=== PATIENT | female | born 1930 | race Caucasian/White ===

== ENCOUNTER 2020-02-24 20:30 | Emergency (ER) | payer MEDICARE ==
[~2020-02-24] VITALS: Ht 152.4 cm; Wt 45.4 kg
--- NOTE | 2020-02-24 21:56 | RAD ---
EXAM: CT HEAD WITHOUT IV CONTRAST CLINICAL HISTORY: Reason: laceration, pain s/p fall / Spl. Instructions: / History: COMPARISON: None. TECHNIQUE: Routine CT of the head without contrast. Soft tissues and bone windows were reviewed. PQRS compliance statement - One or more of the following individualized dose reduction techniques were utilized for this study: 1. Automated exposure control 2. Adjustment of the mA and/or kV according to patient size 3. Use of iterative reconstruction technique FINDINGS: There is no evidence of hemorrhage, mass or extra-axial fluid collection. Truong-white differentiation is maintained with no evidence of edema. Subcortical, periventricular as well as deep white matter hypoattenuation likely changes of chronic small vessel disease. There is no mass effect or shift of the intracranial structures. There is prominence of the ventricles and sulci bilaterally consistent with generalized cerebral atrophy. The cerebellum and brainstem are unremarkable. The calvarium demonstrates no evidence of fracture or focal lesion. There is normal aeration of the visualized paranasal sinuses and mastoid air cells. The visualized portions of the orbits are normal. Marked subcutaneous soft tissue swelling overlying the left calvarium, consistent with provided history of laceration. Atherosclerotic calcifications of the intracranial internal carotid and vertebral arteries is seen. IMPRESSION: No evidence for acute intracranial process. There is prominence of the ventricles and sulci bilaterally consistent with generalized cerebral atrophy. White matter changes likely chronic small vessel disease. EXAM: CT CERVICAL SPINE WITHOUT IV CONTRAST CLINICAL HISTORY: laceration, pain s/p fall COMPARISON: None available. TECHNIQUE: Helical CT of the cervical spine was performed. Axial, coronal and sagittal reformatted images were also performed. PQRS compliance statement - One or more of the following individualized dose reduction techniques were utilized for this study: 1. Automated exposure control 2. Adjustment of the mA and/or kV according to patient size 3. Use of iterative reconstruction technique FINDINGS: Diffusely decreased bone mineral density. Vertebral body heights are preserved. There is approximately 2 mm anterolisthesis of C4 on C5 and 3 mm retrolisthesis of C5 on C6 and C6 on C7. Endplate osteophytes are seen both anteriorly and posteriorly. Straightening of the normal cervical lordosis with focal reversal apexed C5. Mild C4-5, severe C5-6, C6-7 disc height loss. Atlantodental degenerative changes are seen. IMPRESSION: No evidence for acute fracture within the constraints of osteopenia. Trace anterolisthesis of C4 on C5 and retrolisthesis of C5 on C6 and C6 on C7, possibly degenerative. Electronically signed by: Randolph Chin MD (02/24/2020 9:53 PM) PRAFUL
[2020-02-24] MEDS ORDERED: NEOMY/BACITR/POLYMYXIN OINT PACKET. TP ONE ×2 (22:00→23:00)
[2020-02-24] MEDS ORDERED: LIDOCAINE 2%/EPI 1:100,000 20 ML VIAL. INJ ONE (22:00)
[2020-02-24] MEDS ORDERED: DIPH,PERTUSS(ACELL),TET VAC/PF 0.5 ML SYRINGE. VAX IM ONE (22:00)
--- NOTE | 2020-02-24 22:06 | RAD ---
EXAM: AP, lateral and radial head views of the left elbow DATE: 02/24/2020 9:20 PM INDICATION: Reason: pain s/p fall / Spl. Instructions: / History: COMPARISON: No Prior FINDINGS: No elbow joint effusion. No acute fracture or dislocation. No significant soft tissue swelling. IMPRESSION: No acute fracture or dislocation. Electronically signed by: Randolph Chin MD (02/24/2020 10:03 PM) PRAFUL
--- NOTE | 2020-02-24 22:14 | PHYS DOC ---
Past Medical History Past Medical History: Hypertension Past Surgical History: No Surgical History Smoking Status: Never Smoker Alcohol Use: None Drug Use: None General Adult EDM: Chief Complaint: MECHANICAL FALL HPI: HPI: 89-year-old female presents with her daughter with report of mechanical trip and fall down a few stairs striking her left side of her head on corner of [place] cabinet. Patient reports occurred approximately 1 hour prior to arrival. Patient with laceration to scalp that has been bleeding. Patient also complains of skin tear/abrasion to left elbow. Denies loss of consciousness. Denies neck pain. Denies use of blood thinners. Review of Systems: Review of Systems: Constitutional: Denies fever or chills Eyes: Denies redness or eye pain HENT: Denies nasal congestion or sore throat Respiratory: Denies cough or shortness of breath Cardiovascular: Denies chest pain or palpitations GI: Denies abdominal pain, nausea, or vomiting : Denies dysuria or hematuria Musculoskeletal: Denies back pain; reports left elbow pain Integument: Denies rash; reports left scalp laceration and skin tear to left elbow Neurologic: Reports headache; denies focal weakness or sensory changes Complete systems were reviewed and found to be within normal limits, except as documented in this note. Current Medications: Current Medications Medications (Trade) Dose Ordered Sig/Rajat Start Time Stop Time Status Last Admin Dose Admin Diphtheria/ Tetanus/Acell Pertussis (ADACEL TDap SYRINGE) 0.5 ml ONCE ONCE 02/24/20 22:00 02/24/20 22:01 DC 02/24/20 21:56 0.5 ML Lidocaine/ Epinephrine (LIDOCAINE 2%-EPI 1:100,000 multi-dose) 20 ml 1X ONCE 02/24/20 22:00 02/24/20 22:01 DC 02/24/20 21:55 20 ML Neomycin/ Polymyxin/ Bacitracin (Triple Antibiotic Ointment) 1 pkt 1X ONCE 02/24/20 22:00 02/24/20 22:01 DC 02/24/20 21:55 1 PKT Allergies: Allergies: Allergies Coded Allergies Type Severity Reaction Last Updated Verified No Known Drug Allergies 02/24/20 No Physical Exam: PE: Constitutional: Well developed, well nourished, no acute distress, non-toxic appearance, hard of hearing HENT: Normocephalic, left parietal scalp laceration measuring approximately 4 cm with significant bleeding Eyes: PERRL, EOMI, conjunctiva normal, no discharge Neck: Normal range of motion, no midline tenderness, supple Lungs & Thorax: No respiratory distress, equal chest rise and fall Abdomen: Soft, no tenderness; pelvis stable and nontender Skin: Warm, dry, no erythema, 4 cm laceration to left parietal scalp Back: No midline tenderness, no CVA tenderness Extremities: Left olecranon tenderness on palpation, no deformity, ROM intact, no edema Neurologic: Alert and oriented X 3, normal motor function, normal sensory function, no focal deficits noted Psychologic: Affect normal, judgment normal Current Patient Data: Vital Signs: Vital Signs Date Time Temp Pulse Resp B/P (MAP) Pulse Ox O2 Delivery O2 Flow Rate FiO2 02/24/20 21:00 98.5 72 18 186/86 (119) 99 Room Air 98.5 EKG: EKG: [] Radiology/Procedures: Radiology/Procedures: PROCEDURE: CT HEAD AND CERVICAL SPINE WO EXAM: CT HEAD WITHOUT IV CONTRAST CLINICAL HISTORY: Reason: laceration, pain s/p fall / Spl. Instructions: / History: COMPARISON: None. TECHNIQUE: Routine CT of the head without contrast. Soft tissues and bone windows were reviewed. PQRS compliance statement - One or more of the following individualized dose reduction techniques were utilized for this study: 1. Automated exposure control 2. Adjustment of the mA and/or kV according to patient size 3. Use of iterative reconstruction technique FINDINGS: There is no evidence of hemorrhage, mass or extra-axial fluid collection. Truong-white differentiation is maintained with no evidence of edema. Subcortical, periventricular as well as deep white matter hypoattenuation likely changes of chronic small vessel disease. There is no mass effect or shift of the intracranial structures. There is prominence of the ventricles and sulci bilaterally consistent with generalized cerebral atrophy. The cerebellum and brainstem are unremarkable. The calvarium demonstrates no evidence of fracture or focal lesion. There is normal aeration of the visualized paranasal sinuses and mastoid air cells. The visualized portions of the orbits are normal. Marked subcutaneous soft tissue swelling overlying the left calvarium, consistent with provided history of laceration. Atherosclerotic calcifications of the intracranial internal carotid and vertebral arteries is seen. IMPRESSION: No evidence for acute intracranial process. There is prominence of the ventricles and sulci bilaterally consistent with generalized cerebral atrophy. White matter changes likely chronic small vessel disease. EXAM: CT CERVICAL SPINE WITHOUT IV CONTRAST CLINICAL HISTORY: laceration, pain s/p fall COMPARISON: None available. TECHNIQUE: Helical CT of the cervical spine was performed. Axial, coronal and sagittal reformatted images were also performed. PQRS compliance statement - One or more of the following individualized dose reduction techniques were utilized for this study: 1. Automated exposure control 2. Adjustment of the mA and/or kV according to patient size 3. Use of iterative reconstruction technique FINDINGS: Diffusely decreased bone mineral density. Vertebral body heights are preserved. There is approximately 2 mm anterolisthesis of C4 on C5 and 3 mm retrolisthesis of C5 on C6 and C6 on C7. Endplate osteophytes are seen both anteriorly and posteriorly. Straightening of the normal cervical lordosis with focal reversal apexed C5. Mild C4-5, severe C5-6, C6-7 disc height loss. Atlantodental degenerative changes are seen. IMPRESSION: No evidence for acute fracture within the constraints of osteopenia. Trace anterolisthesis of C4 on C5 and retrolisthesis of C5 on C6 and C6 on C7, possibly degenerative. Electronically signed by: Randolph Chin MD (02/24/2020 9:53 PM) [facility] PROCEDURE: ELBOW LEFT 3V EXAM: AP, lateral and radial head views of the left elbow DATE: 02/24/2020 9:20 PM INDICATION: Reason: pain s/p fall / Spl. Instructions: / History: COMPARISON: No Prior FINDINGS: No elbow joint effusion. No acute fracture or dislocation. No significant soft tissue swelling. IMPRESSION: No acute fracture or dislocation. Electronically signed by: Randolph Chin MD (02/24/2020 10:03 PM) [facility] Course & Med Decision Making: Course & Med Decision Making Pertinent Imaging studies reviewed. (See chart for details) Elderly patient presents with report of mechanical trip and fall with scalp laceration and elbow abrasion/skin tear. CT head/cervical spine without acute process. Left elbow x-ray also without fracture or dislocation. Wounds cleaned. Scalp laceration repaired with jeffrey and bleeding controlled. Skin tear cleaned and dressed. Patient stable for discharge with outpatient follow-up with PCP. Discussed findings and plan with patient and family, who acknowledge understanding and agreement. [place] Disclaimer: [place] Disclaimer: This electronic medical record was generated, in whole or in part, using a voice recognition dictation system. Laceration/Wound Repair Laceration/Wound Repair : Wound Location: head Wound's Depth, Shape: linear Wound Length (cm): 4 Wound Explored: clean Anesthesia: Lidocaine w/ Epi (2%) Volume Anesthetic (ccs): 7 Wound Debrided: moderate Sterile Dressing Applied?: Yes Progress Verbal consent obtained. Time out performed. Hand hygiene utilized. Wound cleaned with ChloraPrep. Anesthesia obtained via a 25-gauge hypodermic needle with (7) mL's of lidocaine 2% with epinephrine. Wound well approximated with jeffrey x 8. Direct pressure then held for 5 min with hemostasis. Patient tolerated procedure well and without difficulty. Empiric antibiotic ointment applied prior to sterile dressing. Departure Departure Impression: Primary Impression: Scalp laceration Qualified Codes: S01.01XA - Laceration without foreign body of scalp, initial encounter Additional Impressions: Elbow contusion Qualified Codes: S50.02XA - Contusion of left elbow, initial encounter Skin tear of elbow without complication Qualified Codes: S51.012A - Laceration without foreign body of left elbow, initial encounter Disposition: 01 HOME, SELF-CARE Condition: STABLE Referrals: UNKNOWN PCP NAME (PCP) Patient Instructions: Elastic Bandage and RICE, Elbow Contusion, [id number], Laceration Care, Adult, [id number], Skin Tear Care, [id number] Additional Instructions: Do not soak your wound. You may shower. Clean wound daily with soap and water. Use over the counter antibiotic ointment twice daily. Jeffrey need to be removed in 7-10 days. Present to your family doctor or local urgent care for removal. You may also present to the ED but it will be an additional visit/charge. Justicifation of Admission Dx: Justifications for Admission: Justification of Admission Dx: N/A JULIETA JIMENEZ DO Feb 24, 2020 22:14
[2020-02-24 23:04] VITALS: BP 146/69
== END 2020-02-24 23:10 | disposition home or self-care (01) ==
LOC: ER 20:30
DX: S01.01XA Laceration without foreign body of scalp, initial encounter (principal); I10 Essential (primary) hypertension; W10.8XXA Fall (on) (from) other stairs and steps, initial encounter; Y93.89 Activity, other specified; Y92.89 Other specified places as the place of occurrence of the external cause; Y99.8 Other external cause status
CPT/HCPCS: 12002; 70450; 72125; 73080; 90471; 90715; 99285; J3490

== ENCOUNTER 2020-03-03 10:11 | Emergency (ER) | payer MEDICARE ==
[~2020-03-03] VITALS: Ht 162.6 cm; Wt 63.6 kg
[2020-03-03 11:11] VITALS: BP 170/73
--- NOTE | 2020-03-03 11:37 | PHYS DOC ---
Past Medical History Past Medical History: No Pertinent History Past Surgical History: No Surgical History Smoking Status: Never Smoker Alcohol Use: None Drug Use: None General Adult EDM: Chief Complaint: SUTURE/STAPLE REMOVAL HPI: HPI: 89-year-old female presents the ED with son, requesting staple removal. Patient states she tripped and fell on 02/23, was seen here with "lots of head bleeding," and was stapled. Patient with no active complaints to the wound. Still applying triple antibiotic ointment. Review of Systems: Review of Systems: Constitutional: Denies fever or chills. [] Eyes: Denies change in visual acuity. [] HENT: Denies nasal congestion or sore throat. [] Respiratory: Denies cough or shortness of breath. [] Cardiovascular: Denies chest pain or edema. [] GI: Denies nausea, vomiting, : Denies dysuria. [] Musculoskeletal: Denies back pain or joint pain. [] Integument: Denies rash. [] Neurologic: Denies headache, focal weakness or sensory changes. [] Psychiatric: Denies depression or anxiety. [] Allergies: Allergies: Allergies Coded Allergies Type Severity Reaction Last Updated Verified No Known Drug Allergies 02/24/20 No Physical Exam: PE: Constitutional: Well developed, well nourished, no acute distress, non-toxic appearance. [] HENT: Normocephalic, atraumatic, bilateral external ears normal, 8 altagracia left parietal scalp w/scabs, no erythema/rash or wound dehisence, nose normal. [] Eyes: EOMI, conjunctiva normal, no discharge. [] Neck: Normal range of motion, no tenderness, supple, no stridor. [] Skin: Warm, dry, no erythema, no rash. [] Extremities: No tenderness, no cyanosis, no clubbing, ROM intact, no edema. [] Neurologic: Alert and oriented X 3, normal motor function, normal sensory function, no focal deficits noted. [] Psychologic: Affect normal, judgement normal, mood normal. [] Current Patient Data: Vital Signs: Vital Signs Date Time Temp Pulse Resp B/P (MAP) Pulse Ox O2 Delivery O2 Flow Rate FiO2 03/03/20 11:11 97.8 74 20 170/73 (105) 98 Room Air 97.8 EKG: EKG: [] Radiology/Procedures: Radiology/Procedures: 8 altagracia easily removed with no wound dehiscence or active bleeding, tolerated well Course & Med Decision Making: Course & Med Decision Making Pertinent Labs and Imaging studies reviewed. (See chart for details) Encounter for staple removal. Wound healing well. Discourage any further topical antibiotic ointment. Recommended lathering up antibacterial soap and gently cleansing the wound-wound care instructions were given. Encouraged urgent outpatient follow-up with PMD. Life-threatening processes were considered but are low suspicion at this time, given history and physical exam. Pt was educated on all prescription medications and adverse effects. All patient's questions were answered and pt was stable at time of discharge. I spoken with the patient and her caregivers. I explained the patient's condition, diagnoses and treatment plan based on the information available to me at this time. I have answered the patient and her caregiver's questions and addressed any concerns. The patient and her caregivers have a good understanding of patient's diagnosis, condition and treatment plan as can be expected at this point. Vital signs have been stable. Patient's condition is stable and appropriate for discharge from the emergency department. Patient will pursue further outpatient evaluation with primary care physician or other designated or consulting physician as outlined in the discharge instructions. The patient and/or caregivers are agreeable to this plan of care and follow-up instructions have been explained in detail. The patient and/or caregivers have received these instructions in written form and have expressed an understanding of the discharge instructions. The patient and/or caregivers are aware that any significant change of condition or worsening of symptoms should prompt immediate return to this or the closest emergency department or call to 911. [place] Disclaimer: [place] Disclaimer: This electronic medical record was generated, in whole or in part, using a voice recognition dictation system. Departure Departure Impression: Primary Impression: Removal of altagracia Disposition: HOME, SELF-CARE Condition: STABLE Referrals: UNKNOWN PCP NAME (PCP) Patient Instructions: Staple Removal, Care After Justicifation of Admission Dx: Justifications for Admission: Justification of Admission Dx: N/A STEPHANIE TUCKER DO Mar 03, 2020 11:37
== END 2020-03-03 11:52 | disposition home or self-care (01) ==
LOC: ER 10:11
DX: S01.01XD Laceration without foreign body of scalp, subsequent encounter (principal); W01.0XXD Fall on same level from slipping, tripping and stumbling without subsequent striking against object, subsequent encounter
CPT/HCPCS: 99281; 99282

== ENCOUNTER 2020-06-06 18:18 | Observation (INO) | payer MEDICARE ==
[~2020-06-06] VITALS: Ht 149.9 cm; Wt 38.1 kg
[2020-06-06] MEDS ORDERED: TETANUS AND DIPHTHERIA TOX/PF 0.5 ML DISP.SYRIN. VAX IM ONE (20:00)
[2020-06-06] MEDS ORDERED: LIDOCAINE 1% Multi-Dose 20 ML VIAL. INJ ONE (20:00)
[2020-06-06 20:01] LABS: BILIRUBIN,URINE NEGATIVE (NEG); CLARITY,URINE CLEAR; COLOR,URINE YELLOW; NITRITE,URINE NEGATIVE (NEG); PROTEIN,URINE NEGATIVE (NEG-TRACE)
[2020-06-06 20:12] LABS: RBC,URINE 0 /HPF (0-2)
[2020-06-06 20:13] LABS: BACTERIA,URINE 0 /HPF (0-FEW)
--- NOTE | 2020-06-06 21:08 | RAD ---
CT Head W/O Contrast: History: Reason: fall hit head / Spl. Instructions: / History: Comparison: February 24, 2020 Axial images were obtained without contrast. There is a tiny 2 mm subdural hematoma on the right breast seen on image #21. The dunne and white matter appears normal and symmetrical for the patients age. There is no mass effect or hydrocephalus. There is no gross bleed. There is no focal loss of dunne-white matter distinction to suggest acute ischemia, i.e. stroke. Impression: Tiny acute subdural hematoma on the right. No mass effect. End impression CT C-Spine without contrast: Clinical History: Reason: fall hit head / Spl. Instructions: / History: Technique: Axial helical images of the cervical spine were obtained without contrast, axial coronal and sagittal reconstruction was performed. Findings: There is no loss of vertebral body stature. There is no prevertebral soft tissue swelling. The vertebral bodies are well aligned. The C1-C2 relationship is normal. The visualized osseous structures appear normal. Evaluation of the central canal is limited without contrast. There is multiple posterior disc bulges resulting in flattening of the thecal sac. At C5-C6 and C6-C7 there is loss of intervertebral disc height and diffuse disc osteophytic ridges causing complete effacement of CSF around cord. There is mild flattening of the cord at these levels makes the patient susceptible to possible cord contusion. There is also marked narrowing of multiple neuroforamen. There is moderate narrowing of the neuroforamen at these levels. 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 No acute findings. Clinical correlation suggested. See CT head without contrast. End impression PQRS Compliance Statement: One or more of the following individualized dose reduction techniques were utilized for this examination: 1. Automated exposure control 2. Adjustment of the mA and/or kV according to patient size 3. Use of iterative reconstruction technique Electronically signed by: Todd Guzman III, MD (06/06/2020 9:04 PM) [facility]
--- NOTE | 2020-06-06 21:56 | PHYS DOC ---
Past Medical History Past Medical History: Dementia, Hypertension Additional Past Medical Histor: Falls. Past Surgical History: No Surgical History Smoking Status: Never Smoker Alcohol Use: None Drug Use: None General Adult EDM: Chief Complaint: MECHANICAL FALL HPI: HPI: Patient is a 89 year old female with a history of dementia, hypertension, who presents to the ED to be evaluated after falling sometime this afternoon. It is unknown what time patient fell but family member with the patient in the ED states she received a call from patient stating she had fallen. It is unknown if she had any loss of consciousness due to Dementia she is unable to state if she had any LOC. She is in the ED alert and oriented x4. Family reports she is on aspirin 81 mg daily. Patient has laceration to the right ear. Review of Systems: Review of Systems: Constitutional: Denies fever or chills. [] Eyes: Denies change in visual acuity. [] HENT: Denies nasal congestion or sore throat. [] Respiratory: Denies cough or shortness of breath. [] Cardiovascular: Denies chest pain or edema. [] GI: Denies abdominal pain, nausea, vomiting, bloody stools or diarrhea. [] : Denies dysuria. [] Musculoskeletal: Denies back pain or joint pain. [] Integument: Right ear laceration. Neurologic: Patient reports falling. Denies headache, focal weakness or sensory changes. [] Psychiatric: Denies depression or anxiety. [] Heart Score: Risk Factors: Risk Factors: DM, Current or recent (<one month) smoker, HTN, HLP, family history of CAD, obesity. Risk Scores: Score 0 - 3: 2.5% MACE over next 6 weeks - Discharge Home Score 4 - 6: 20.3% MACE over next 6 weeks - Admit for Clinical Observation Score 7 - 10: 72.7% MACE over next 6 weeks - Early Invasive Strategies Current Medications: Current Medications Medications (Trade) Dose Ordered Sig/[facility] Start Time Stop Time Status Last Admin Dose Admin Lidocaine HCl (Lidocaine 1% 20ml Vial) 20 ml 1X ONCE 06/06/20 20:00 06/06/20 20:01 DC 06/06/20 19:45 20 ML Tetanus/ Diphtheria Toxoids (Tenivac Syringe) 0.5 ml ONCE ONCE 06/06/20 20:00 06/06/20 20:01 DC Allergies: Allergies: Allergies Coded Allergies Type Severity Reaction Last Updated Verified No Known Drug Allergies 02/24/20 No Physical Exam: PE: Constitutional: Thin appearing patient, no acute distress, non-toxic appearance. [] HENT: Normocephalic, oropharynx moist, no oral exudates, nose normal. See skin Eyes: PERRLA, EOMI, conjunctiva normal, no discharge. [] Neck: Normal range of motion, no tenderness, supple, no stridor. [] Cardiovascular:Heart rate regular rhythm, no murmur [] Lungs & Thorax: Bilateral breath sounds clear to auscultation [] Abdomen: Bowel sounds normal, soft, no tenderness, no masses, no pulsatile masses. [] Skin: right helix with 2 lacerations, one laceration is on the posterior aspect approximately 3 cm long, the other laceration on top of the helix approximately 2 cm long. None of the lacerations are cutting through. Bleeding is well controlled. Back: No tenderness, no CVA tenderness. [] Extremities: No tenderness, no cyanosis, no clubbing, ROM intact, no edema. [] Neurologic: Alert and oriented X 3, normal motor function, normal sensory function, no focal deficits noted. Cranial nerves II through XII intact. Psychologic: Affect normal, judgement normal, mood normal. [] Current Patient Data: Labs: Laboratory Tests Test 06/06/20 19:50 Urine Collection Type Unknown Urine Color Yellow Urine Clarity Clear Urine pH 6.0 (<5.0-8.0) Urine Specific [place] 1.020 (1.000-1.030) Urine Protein Negative mg/dL (NEG-TRACE) Urine Glucose (UA) Negative mg/dL (NEG) Urine Ketones (Stick) Negative mg/dL (NEG) Urine Blood Negative (NEG) Urine Nitrite Negative (NEG) Urine Bilirubin Negative (NEG) Urine Urobilinogen Dipstick 1.0 mg/dL (0.2 mg/dL) Urine Leukocyte Esterase Trace (NEG) Urine RBC 0 /HPF (0-2) Urine WBC 1-4 /HPF (0-4) Urine Squamous Epithelial Cells Mod /LPF Urine Transitional Epithelial Cells Few /LPF Urine Bacteria 0 /HPF (0-FEW) Urine Mucus Marked /LPF Vital Signs: Vital Signs Date Time Temp Pulse Resp B/P (MAP) Pulse Ox O2 Delivery O2 Flow Rate FiO2 06/06/20 19:04 97.8 74 14 166/66 (99) 99 Room Air 97.8 EKG: EKG: [] Radiology/Procedures: Radiology/Procedures: []PROCEDURE: CT HEAD AND CERVICAL SPINE WO CT Head W/O Contrast: History: Reason: fall hit head / Spl. Instructions: / History: Comparison: February 24, 2020 Axial images were obtained without contrast. There is a tiny 2 mm subdural hematoma on the right breast seen on image #21. The dunne and white matter appears normal and symmetrical for the patients age. There is no mass effect or hydrocephalus. There is no gross bleed. There is no focal loss of dunne-white matter distinction to suggest acute ischemia, i.e. stroke. Impression: Tiny acute subdural hematoma on the right. No mass effect. End impression CT C-Spine without contrast: Clinical History: Reason: fall hit head / Spl. Instructions: / History: Technique: Axial helical images of the cervical spine were obtained without contrast, axial coronal and sagittal reconstruction was performed. Findings: There is no loss of vertebral body stature. There is no prevertebral soft tissue swelling. The vertebral bodies are well aligned. The C1-C2 relationship is normal. The visualized osseous structures appear normal. Evaluation of the central canal is limited without contrast. There is multiple posterior disc bulges resulting in flattening of the thecal sac. At C5-C6 and C6-C7 there is loss of intervertebral disc height and diffuse disc osteophytic ridges causing complete effacement of CSF around cord. There is mild flattening of the cord at these levels makes the patient susceptible to possible cord contusion. There is also marked narrowing of multiple neuroforamen. There is moderate narrowing of the neuroforamen at these levels. 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 No acute findings. Clinical correlation suggested. See CT head without contrast. End impression PQRS Compliance Statement: One or more of the following individualized dose reduction techniques were utilized for this examination: 1. Automated exposure control 2. Adjustment of the mA and/or kV according to patient size 3. Use of iterative reconstruction technique Electronically signed by: Bakari Gorman III, MD (06/06/2020 9:04 PM) [facility] DICTATED and SIGNED BY: BAKARI GORMAN III, MD DATE: 06/06/20 [id number] Laceration/Wound Repair Wound Location: Right hallux Wound's Depth, Shape: Vertical Wound Length (cm): See skin documentation on physical exam Wound Explored: clean Irrigated w/ Saline (ccs): 10 Betadine Prep?: Yes Anesthesia: 1% of lidocaine Volume Anesthetic (ccs): Approximately 7 cc Wound Repaired With: Vicryl Suture Size/Type: 4.0/interrupted sutures Number of Sutures: Posterior helix was repaired with 6 interrupted sutures, the top of the helix was repaired with 4 interrupted sutures. Wound was left open to air Course & Med Decision Making: Course & Med Decision Making Pertinent Labs and Imaging studies reviewed. (See chart for details) This is a 89-year-old female patient presenting to the ED today to be evaluated after falling this afternoon. Patient has laceration to the right ear. She is not able to tell us if she had any loss of consciousness, has history of dementia. UA is negative CT of the head was noted for a tiny subdural hematoma on the right side. I spoke to Sonia [facility] [place] for Dr. Ramos who requested we admit patient ICU. Spoke with Dr. Parsons who accepted patient for admission Dragon Disclaimer: [place] Disclaimer: This electronic medical record was generated, in whole or in part, using a voice recognition dictation system. Departure Departure Impression: Primary Impression: Fall Qualified Codes: W19.XXXA - Unspecified fall, initial encounter Additional Impressions: Laceration of right ear Qualified Codes: S01.311A - Laceration without foreign body of right ear, initial encounter Subdural hematoma, acute Disposition: 09 ADMITTED INPT THIS HOSP Condition: STABLE Referrals: NO PCP (PCP) GERSON [employer]AS [employer] Jun 06, 2020 21:56
[2020-06-06] MEDS ORDERED: fentaNYL PF VIAL 100 MCG/2 ML VIAL IV PRN (22:15)
[2020-06-06 22:21] LABS: BASO % 1 % (0-3); EOS # 0.1 x10^3/uL (0.0-0.7); EOS % 1 % (0-3); HEMATOCRIT 43.7 % (36.0-47.0); HEMOGLOBIN 14.8 g/dL (12.0-15.5); LYMPH # 1.9 x10^3/uL (1.0-4.8); LYMPH % 34 % (24-48); MEAN CORPUSCULAR HEMOGLOBIN 32 pg (25-35); MEAN CORPUSCULAR HGB CONC 34 g/dL (31-37); MEAN CORPUSCULAR VOLUME 93 fL (79-100); MONO # 0.5 x10^3/uL (0.0-1.1); MONO % 9 % (0-9); NEUT % 55 % (31-73); PLATELET COUNT 231 x10^3/uL (140-400); RED BLOOD COUNT 4.68 x10^6/uL (3.50-5.40); RED CELL DISTRIBUTION WIDTH 13.8 % (11.5-14.5); WHITE BLOOD COUNT 5.6 x10^3/uL (4.0-11.0)
[2020-06-06 22:33] LABS: PROTHROMBIN TIME PATIENT 13.1 SEC (11.7-14.0)
[2020-06-06 22:34] LABS: CALCIUM 9.2 mg/dL (8.5-10.1); CREATININE 0.7 mg/dL (0.6-1.0); POTASSIUM 4.3 mmol/L (3.5-5.1)
[2020-06-06 22:40] LABS: ALBUMIN 3.7 g/dL (3.4-5.0); ALBUMIN/GLOBULIN RATIO 1.3 (1.0-1.7); MAGNESIUM 2.2 mg/dL (1.8-2.4); TOTAL BILIRUBIN 0.4 mg/dL (0.2-1.0); TOTAL PROTEIN 6.6 g/dL (6.4-8.2)
[2020-06-06] MEDS ORDERED: LABETALOL 20 MG/4 ML DISP.SYRIN. IVP ONE (23:00)
--- NOTE | 2020-06-06 23:15 | NUR ---
received report from budget report clerk. pt abhishek springh. says she has been healthy all her life. a and o x3. in room 111 in icu. laceration on right side of face effecting her ear, lcrn
[2020-06-06 23:46] LABS: BARBITURATES NEG (NEG); BENZODIAZEPINES NEG (NEG); CANNABINOIDS NEG (NEG); COCAINE NEG (NEG); METHADONE NEG (NEG); OPIATES NEG (NEG); PHENCYCLIDINE NEG (NEG)
[2020-06-06 23:58] LABS: AMPHETAMINE/METHAMPHETAMINE NEG (NEG)
[2020-06-07] VITALS (8 sets, daily range): BP systolic 88–158; BP diastolic 42–76
[2020-06-07] MEDS ORDERED: ASPI81TA59 PO (06:31)
[2020-06-07] MEDS ORDERED: AMLO10TA4 PO (07:06)
--- NOTE | 2020-06-07 08:46 | RAD ---
INDICATION: Reason: Subdural hematoma;DO CT AROUND 8-8:30AM PER DR RAYGOZA / Spl. Instructions: / History: . COMPARISON: June 06, 2020 TECHNIQUE: Axial CT images obtained through the head. One or more of the following individualized dose reduction techniques were utilized for this examination: 1. Automated exposure control; 2. Adjustment of the mA and/or kV according to patient size; 3. Use of iterative reconstruction technique. FINDINGS: No midline shift. Suprasellar cistern is not effaced. Diffuse prominence of ventricles and sulci which can be seen with age-related volume loss. Repeat demonstration of a tiny density within the right cerebral hemisphere just deep to the calvarium measuring up to about 2 mm in thickness. Multifocal low density throughout the white matter. Calcific atherosclerosis. IMPRESSION: * No major change in the density just deep to the calvarium in the right cerebral hemisphere. Again could be from a tiny amount of subdural blood although a portion of this appearance could also be secondary to vein coursing through the region. * Multifocal low density within the white matter which can be seen with chronic small vessel ischemic disease and is a common finding. Electronically signed by: Jp Salomon MD (06/07/2020 8:43 AM) [id number]
--- NOTE | 2020-06-07 09:51 | NUR ---
NOTIFIED DAUGHTER OF TRANSFER.
--- NOTE | 2020-06-07 10:01 | PDOC1 ---
History and Physical Date of Admission Date of Admission 06/07/2020 Identification/Chief Complaint Chief Complaint I fell Problems: (1) Fall (2) Subdural hematoma, acute (3) Laceration of right ear Source Source: Chart review, Patient History of Present Illness History of Present Illness Patient is an 89-year-old female with a past medical history of essential hypertension and dementia who is a very poor historian presented to the emergency department after falling in the afternoon the day prior to her admission. The patient tells me that she lives by herself does not know if she has family around initially but later on when redirecting the conversation she tells me that she does have family in the vicinity. She denied any lightheadedness no chest pain no palpitations prior to the event, the patient denied any sensation of impending doom and she does not remember the chain of events that led her to be on the floor. Patient suffered a laceration on her right ear as a consequence of her fall in she was also found to have a subdural hematoma on CT scan. The patient reported no discomfort at the time my evaluation. We were asked to admit the patient for neurosurgical evaluation by Dr. Shook. No neurological deficits are evident no slurred speech no strokelike symptoms were reported she is able to move all extremities and she is wanting to be released home soon if possible. Plan of care has been explained in detail and all of her concerns addressed to the best of my abilities. The patient family members reported that the patient takes aspirin 81 mg daily but no other anticoagulation. Patient denies headache no blurred vision no double vision no dysphagia odynophagia no shortness of breath no cough no sputum production no recent sick contacts were reported no nausea vomiting or diarrhea. No skin rashes no other complaints Past Medical History Cardiovascular: HTN CENTRAL NERVOUS SYSTEM: Dementia Past Surgical History Past Surgical History: No pertinent history Family History Family History: No Significant Social History Smoke: No ALCOHOL: none Drugs: None Current Problem List Problem List Problems Medical Problems: (1) Fall Status: Acute (2) Laceration of right ear Status: Acute (3) Subdural hematoma, acute Status: Acute Current Medications Current Medications Current Medications Medications (Trade) Dose Ordered Sig/[facility]at Start Time Stop Time Status Last Admin Dose Admin Fentanyl Citrate (Fentanyl 2ml Vial) 50 mcg PRN Q1HR PRN 06/06/20 22:15 06/07/20 22:14 Labetalol HCl (Normodyne Iv Push) 10 mg 1X ONCE 06/06/20 23:00 06/06/20 23:01 DC 06/06/20 22:32 10 MG Lidocaine HCl (Lidocaine 1% 20ml Vial) 20 ml 1X ONCE 06/06/20 20:00 06/06/20 20:01 DC 06/06/20 19:45 20 ML Tetanus/ Diphtheria Toxoids (Tenivac Syringe) 0.5 ml ONCE ONCE 06/06/20 20:00 06/06/20 20:01 DC Allergies Allergies Allergies Coded Allergies Type Severity Reaction Last Updated Verified No Known Drug Allergies 02/24/20 No ROS Review of System CONSTITUTIONAL: No fever or chills EYES: No recent changes SKIN: No rash or itching CARDIOVASCULAR: No chest pain, syncope, palpitations, or edema RESPIRATORY: No SOB or cough GASTROINTESTINAL: No nausea, vomiting or abdominal pain NEUROLOGICAL: No headaches or weakness ENDOCRINE: No cold or heat intolerance GENITOURINARY: No urgency or frequency of urination MUSCULOSKELETAL: No back pain or joint pain LYMPHATICS: No enlarged lymph nodes PSYCHIATRIC: No anxiety or depression Physical Exam Physical Exam GEN.: No apparent distress. Alert and oriented. HEENT: Head is normocephalic, atraumatic, right ear laceration status post repair NECK: Supple. LUNGS: Clear to auscultation. HEART: RRR, S1, S2 present. Peripheral pulses intact ABDOMEN: Soft, nontender. Positive bowel sounds. EXTREMITIES: Without any cyanosis. NEUROLOGIC: Normal speech, normal tone cranial nerves II to XII intact no motor or sensory deficits appreciated PSYCHIATRIC: Normal affect, normal mood. SKIN: No ulcerations Vitals Vitals Vital Signs Date Time Temp Pulse Resp B/P (MAP) Pulse Ox O2 Delivery O2 Flow Rate FiO2 06/07/20 03:54 97.7 53 18 94/44 (61) 97 Room Air 97.7 Labs Labs Laboratory Tests Test 06/06/20 19:50 06/06/20 22:05 Urine Collection Type Unknown Urine Color Yellow Urine Clarity Clear Urine pH 6.0 (<5.0-8.0) Urine Specific [place] 1.020 (1.000-1.030) Urine Protein Negative mg/dL (NEG-TRACE) Urine Glucose (UA) Negative mg/dL (NEG) Urine Ketones (Stick) Negative mg/dL (NEG) Urine Blood Negative (NEG) Urine Nitrite Negative (NEG) Urine Bilirubin Negative (NEG) Urine Urobilinogen Dipstick 1.0 mg/dL (0.2 mg/dL) Urine Leukocyte Esterase Trace (NEG) Urine RBC 0 /HPF (0-2) Urine WBC 1-4 /HPF (0-4) Urine Squamous Epithelial Cells Mod /LPF Urine Transitional Epithelial Cells Few /LPF Urine Bacteria 0 /HPF (0-FEW) Urine Mucus Marked /LPF Urine Opiates Screen Neg (NEG) Urine Methadone Screen Neg (NEG) Urine Barbiturates Neg (NEG) Urine Phencyclidine Screen Neg (NEG) Urine Amphetamine/Methamphetamine Neg (NEG) Urine Benzodiazepines Screen Neg (NEG) Urine Cocaine Screen Neg (NEG) Urine Cannabinoids Screen Neg (NEG) Urine Ethyl Alcohol Neg (NEG) White Blood Count 5.6 x10^3/uL (4.0-11.0) Red Blood Count 4.68 x10^6/uL (3.50-5.40) Hemoglobin 14.8 g/dL (12.0-15.5) Hematocrit 43.7 % (36.0-47.0) Mean Corpuscular Volume 93 fL (79-100) Mean Corpuscular Hemoglobin 32 pg (25-35) Mean Corpuscular Hemoglobin Concent 34 g/dL (31-37) Red Cell Distribution Width 13.8 % (11.5-14.5) Platelet Count 231 x10^3/uL (140-400) Neutrophils (%) (Auto) 55 % (31-73) Lymphocytes (%) (Auto) 34 % (24-48) Monocytes (%) (Auto) 9 % (0-9) Eosinophils (%) (Auto) 1 % (0-3) Basophils (%) (Auto) 1 % (0-3) Neutrophils # (Auto) 3.0 x10^3/uL (1.8-7.7) Lymphocytes # (Auto) 1.9 x10^3/uL (1.0-4.8) Monocytes # (Auto) 0.5 x10^3/uL (0.0-1.1) Eosinophils # (Auto) 0.1 x10^3/uL (0.0-0.7) Basophils # (Auto) 0.0 x10^3/uL (0.0-0.2) Prothrombin Time 13.1 SEC (11.7-14.0) Prothromb Time International Ratio 1.0 (0.8-1.1) Activated Partial Thromboplast Time 30 SEC (24-38) Sodium Level 143 mmol/L (136-145) Potassium Level 4.3 mmol/L (3.5-5.1) Chloride Level 107 mmol/L (98-107) Carbon Dioxide Level 26 mmol/L (21-32) Anion Gap 10 (6-14) Blood Urea Nitrogen 30 mg/dL (7-20) Creatinine 0.7 mg/dL (0.6-1.0) Estimated GFR (Cockcroft-Gault) 79.0 BUN/Creatinine Ratio 43 (6-20) Glucose Level 107 mg/dL (70-99) Calcium Level 9.2 mg/dL (8.5-10.1) Magnesium Level 2.2 mg/dL (1.8-2.4) Total Bilirubin 0.4 mg/dL (0.2-1.0) Aspartate Amino Transf (AST/SGOT) 24 U/L (15-37) Alanine Aminotransferase (ALT/SGPT) 23 U/L (14-59) Alkaline Phosphatase 68 U/L (46-116) Total Protein 6.6 g/dL (6.4-8.2) Albumin 3.7 g/dL (3.4-5.0) Albumin/Globulin Ratio 1.3 (1.0-1.7) Ethyl Alcohol Level < 10 mg/dL (0-10) Laboratory Tests Test 06/06/20 19:50 06/06/20 22:05 Urine Collection Type Unknown Urine Color Yellow Urine Clarity Clear Urine pH 6.0 (<5.0-8.0) Urine Specific [place] 1.020 (1.000-1.030) Urine Protein Negative mg/dL (NEG-TRACE) Urine Glucose (UA) Negative mg/dL (NEG) Urine Ketones (Stick) Negative mg/dL (NEG) Urine Blood Negative (NEG) Urine Nitrite Negative (NEG) Urine Bilirubin Negative (NEG) Urine Urobilinogen Dipstick 1.0 mg/dL (0.2 mg/dL) Urine Leukocyte Esterase Trace (NEG) Urine RBC 0 /HPF (0-2) Urine WBC 1-4 /HPF (0-4) Urine Squamous Epithelial Cells Mod /LPF Urine Transitional Epithelial Cells Few /LPF Urine Bacteria 0 /HPF (0-FEW) Urine Mucus Marked /LPF Urine Opiates Screen Neg (NEG) Urine Methadone Screen Neg (NEG) Urine Barbiturates Neg (NEG) Urine Phencyclidine Screen Neg (NEG) Urine Amphetamine/Methamphetamine Neg (NEG) Urine Benzodiazepines Screen Neg (NEG) Urine Cocaine Screen Neg (NEG) Urine Cannabinoids Screen Neg (NEG) Urine Ethyl Alcohol Neg (NEG) White Blood Count 5.6 x10^3/uL (4.0-11.0) Red Blood Count 4.68 x10^6/uL (3.50-5.40) Hemoglobin 14.8 g/dL (12.0-15.5) Hematocrit 43.7 % (36.0-47.0) Mean Corpuscular Volume 93 fL (79-100) Mean Corpuscular Hemoglobin 32 pg (25-35) Mean Corpuscular Hemoglobin Concent 34 g/dL (31-37) Red Cell Distribution Width 13.8 % (11.5-14.5) Platelet Count 231 x10^3/uL (140-400) Neutrophils (%) (Auto) 55 % (31-73) Lymphocytes (%) (Auto) 34 % (24-48) Monocytes (%) (Auto) 9 % (0-9) Eosinophils (%) (Auto) 1 % (0-3) Basophils (%) (Auto) 1 % (0-3) Neutrophils # (Auto) 3.0 x10^3/uL (1.8-7.7) Lymphocytes # (Auto) 1.9 x10^3/uL (1.0-4.8) Monocytes # (Auto) 0.5 x10^3/uL (0.0-1.1) Eosinophils # (Auto) 0.1 x10^3/uL (0.0-0.7) Basophils # (Auto) 0.0 x10^3/uL (0.0-0.2) Prothrombin Time 13.1 SEC (11.7-14.0) Prothromb Time International Ratio 1.0 (0.8-1.1) Activated Partial Thromboplast Time 30 SEC (24-38) Sodium Level 143 mmol/L (136-145) Potassium Level 4.3 mmol/L (3.5-5.1) Chloride Level 107 mmol/L (98-107) Carbon Dioxide Level 26 mmol/L (21-32) Anion Gap 10 (6-14) Blood Urea Nitrogen 30 mg/dL (7-20) Creatinine 0.7 mg/dL (0.6-1.0) Estimated GFR (Cockcroft-Gault) 79.0 BUN/Creatinine Ratio 43 (6-20) Glucose Level 107 mg/dL (70-99) Calcium Level 9.2 mg/dL (8.5-10.1) Magnesium Level 2.2 mg/dL (1.8-2.4) Total Bilirubin 0.4 mg/dL (0.2-1.0) Aspartate Amino Transf (AST/SGOT) 24 U/L (15-37) Alanine Aminotransferase (ALT/SGPT) 23 U/L (14-59) Alkaline Phosphatase 68 U/L (46-116) Total Protein 6.6 g/dL (6.4-8.2) Albumin 3.7 g/dL (3.4-5.0) Albumin/Globulin Ratio 1.3 (1.0-1.7) Ethyl Alcohol Level < 10 mg/dL (0-10) Images Images Radiology/Procedures: []PROCEDURE: CT HEAD AND CERVICAL SPINE WO CT Head W/O Contrast: History: Reason: fall hit head / Spl. Instructions: / History: Comparison: February 24, 2020 Axial images were obtained without contrast. There is a tiny 2 mm subdural hematoma on the right breast seen on image #21. The dunne and white matter appears normal and symmetrical for the patients age. There is no mass effect or hydrocephalus. There is no gross bleed. There is no focal loss of dunne-white matter distinction to suggest acute ischemia, i.e. stroke. Impression: Tiny acute subdural hematoma on the right. No mass effect. End impression CT C-Spine without contrast: Clinical History: Reason: fall hit head / Spl. Instructions: / History: Technique: Axial helical images of the cervical spine were obtained without contrast, axial coronal and sagittal reconstruction was performed. Findings: There is no loss of vertebral body stature. There is no prevertebral soft tissue swelling. The vertebral bodies are well aligned. The C1-C2 relationship is normal. The visualized osseous structures appear normal. Evaluation of the central canal is limited without contrast. There is multiple posterior disc bulges resulting in flattening of the thecal sac. At C5-C6 and C6-C7 there is loss of intervertebral disc height and diffuse disc osteophytic ridges causing complete effacement of CSF around cord. There is mild flattening of the cord at these levels makes the patient susceptible to possible cord contusion. There is also marked narrowing of multiple neuroforamen. There is moderate narrowing of the neuroforamen at these levels. 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 No acute findings. Clinical correlation suggested. See CT head without contrast. End impression PQRS Compliance Statement: One or more of the following individualized dose reduction techniques were utilized for this examination: 1. Automated exposure control 2. Adjustment of the mA and/or kV according to patient size 3. Use of iterative reconstruction technique Electronically signed by: Todd Guzman III, MD (06/06/2020 9:04 PM) [facility] VTE Prophylaxis Ordered VTE Prophylaxis Devices: Yes VTE Pharmacological Prophylaxi: No Assessment/Plan Assessment/Plan Mechanical fall Right ear laceration Subdural hematoma. History of essential hypertension History of dementia Plan: Patient will be seen by Dr. Shook from neurosurgery Hold anticoagulation if part of her medicines once available for review We will resume home medications once available for review Pain management PT and OT evaluation Further commendations based on the clinical course DVT prophylaxis with SCD and teds Justifications for Admission Other Justification Problem Qualifiers (1) Fall: Encounter type: initial encounter Qualified Codes: W19.XXXA - Unspecified fall, initial encounter (2) Laceration of right ear: Encounter type: initial encounter Qualified Codes: S01.311A - Laceration without foreign body of right ear, initial encounter SVITLANA STEHPENS MD Jun 07, 2020 10:01
[2020-06-07] MEDS ORDERED: ACETAMINOPHEN 325 MG TABLET. PO PRN (10:15)
[2020-06-07] MEDS ORDERED: ONDANSETRON PF 4 MG/2 ML VIAL. IV PRN (10:15)
[2020-06-07] MEDS ORDERED: ALBUTEROL SULFATE 2.5 MG/3 ML NEBU. NEB PRN (10:15)
[2020-06-07] MEDS ORDERED: guaiFENesin ORAL 200 MG/10 ML LIQUID. PO PRN (10:15)
[2020-06-07] MEDS ORDERED: DOCUSATE SODIUM 100 MG CAPSULE. PO PRN (10:15)
--- NOTE | 2020-06-07 10:30 | NUR ---
SS following for discharge planning. SS reviewed pt chart and discussed with pt RN. Pt is from home alone and is currently on room air. COVID19 test pending. PT/OT ordered. Pt transferred to room 674. Mere TANG, notified.
[2020-06-07] MEDS: amLODIPine BESYLATE 10 MG TABLET PO SCH (11:00)
--- NOTE | 2020-06-07 13:09 | PDOC ---
Provider Note Date of Service: DATE: 06/07/20 TIME: 13:05 Provider Note Patient seen and examined s/p fall denies pain or headache alert, cooperative, no distress CT with tiny acute subdural hematoma on the right. no mass effect.Stable on follow up CT ok to dc from NS standpoint will need follow up CT in 7 to 10 days D/W RN Justifications for Admission Other Justification subdural hematoma LETICIA ADAMES MD Jun 07, 2020 13:09
[2020-06-08 03:00] VITALS: BP 97/56
[2020-06-08 07:00] VITALS: BP 145/88
--- NOTE | 2020-06-08 09:23 | PDOC ---
[facility] PROGRESS NOTE Date of Service DOS: DATE: 06/08/20 TIME: 09:22 Chief Complaint Chief Complaint A/P: Mechanical fall Right ear laceration Subdural hematoma. History of essential hypertension History of dementia Plan: PT and OT evaluation Further commendations based on the clinical course DVT prophylaxis with SCD and teds History of Present Illness History of Present Illness Ms Lawler is an 89 yo F w/ PMHx essential hypertension and dementia who fell prior to her admission. The patient tells me that she lives by herself does not know if she has family around initially but later on when redirecting the conversation she tells me that she does have family in the vicinity. She denied any lightheadedness no chest pain no palpitations prior to the event, the patient denied any sensation of impending doom and she does not remember the chain of events that led her to be on the floor. Patient suffered a laceration on her right ear as a consequence of her fall in she was also found to have a subdural hematoma on CT scan. The patient reported no discomfort at the time my evaluation. We were asked to admit the patient for neurosurgical evaluation by Dr. Ramos. No neurological deficits are evident no slurred speech no strokelike symptoms were reported she is able to move all extremities and she is wanting to be released home soon if possible. Plan of care has been explained in detail and all of her concerns addressed to the best of my abilities. The patient family members reported that the patient takes aspirin 81 mg daily but no other anticoagulation. Patient denies headache no blurred vision no double vision no dysphagia odynophagia no shortness of breath no cough no sputum production no recent sick contacts were reported no nausea vomiting or diarrhea. No skin rashes no other complaints Vitals/I&O Vitals/I&O: Vital Signs Date Time Temp Pulse Resp B/P (MAP) Pulse Ox O2 Delivery O2 Flow Rate FiO2 06/08/20 03:00 97.7 60 22 97/56 (70) 97 Room Air 97.7 I & O 06/07/20 06/07/20 06/08/20 15:00 23:00 07:00 Intake Total 0 ml Output Total 100 ml 0 ml 0 ml Balance -100 ml 0 ml 0 ml Physical Exam General: Alert, Cooperative Heart: Regular rate, Normal S1, Normal S2 Lungs: Clear, Wheezing Abdomen: Normal bowel sounds, Soft Extremities: No clubbing, No cyanosis Skin: No rashes, No breakdown Assessment and Plan Assessmemt and Plan Problems Medical Problems: (1) Fall Status: Acute (2) Laceration of right ear Status: Acute (3) Subdural hematoma, acute Status: Acute Comment Review of Relevant I have reviewed the following items mickie (where applicable) has been applied. Justifications for Admission Other Justification subdural hematoma MIKE DE SANTIAGO MD Jun 08, 2020 09:23
--- NOTE | 2020-06-08 09:44 | SNU/HH DC ---
DISCHARGE WITH HOME HEALTH DISCHARGE INFORMATION: Discharge Date: Jun 08, 2020 Final Diagnosis: Problems Medical Problems: (1) Fall Status: Acute (2) Laceration of right ear Status: Acute (3) Subdural hematoma, acute Status: Acute Condition on Discharge: Stable HOME HEALTH: Face to Face: I certify this patient is under my care and that I, or a nurse practitioner or physician's pediatric physical therapy assistant working with me, had a face to face encounter that meets the physician face to face encounter requirements with this patient on 06/08/2020. Medical Complications: Dementia, Falls Assisted For: Assess & Educate Safety, Assess/Skilled Observatio, Pain Management RN For Eval/Treatment: Yes Physical Therapy For: Evalulation/Treatment Occupational Therapy For: Evaluation/Treatment Pt Meets Homebound Status: Extreme weakness w/ amb., Poor cognition POST DISCHARGE ORDERS: Activity Instructions for Disc: Resume previous activity Weight Bearing Status after Di: Full weight bearing DIET AFTER DISCHARGE: Regular CHECKS AFTER DISCHARGE: Checks after discharge: Check your Temp as needed, Weigh Yourself Daily CERTIFICATION STATEMENT: Certification Statement: Certification Statement: Based on the above finding, I certify that this patient is confined to the home and needs intermittent nursing home care, physical therapy and/or speech therapy, or continues to need occupational therapy.~ This patient is under my care, and I have initiated the establishment of the plan of care.~ This patient will be followed by myself or a community physician who will periodically review the plan of care. Home Meds Reported Medications Amlodipine Besylate (NORVASC) 10 Mg Tablet, 10 MG PO DAILY for BP, TAB 06/07/20 Discontinued Reported Medications Aspirin (Children's Aspirin) 81 Mg Tab.chew, 81 MG PO DAILY for blood thinner, T AB.CHEW 06/07/20 MIKE DE SANTIAGO MD Jun 08, 2020 09:44
--- NOTE | 2020-06-08 09:46 | PDOC3 ---
Discharge Summary Visit Information Date of Admission: Jun 06, 2020 Date of Discharge: Jun 08, 2020 Admitting Diagnosis: Subdural hematoma Final Diagnosis Problems Medical Problems: (1) Fall Status: Acute (2) Laceration of right ear Status: Acute (3) Subdural hematoma, acute Status: Acute Brief Hospital Course Allergies Allergies Coded Allergies Type Severity Reaction Last Updated Verified No Known Drug Allergies 02/24/20 No Vital Signs Vital Signs Date Time Temp Pulse Resp B/P (MAP) Pulse Ox O2 Delivery O2 Flow Rate FiO2 06/08/20 03:00 97.7 60 22 97/56 (70) 97 Room Air 97.7 Lab Results Laboratory Tests Test 06/06/20 19:50 06/06/20 22:05 Urine Collection Type Unknown Urine Color Yellow Urine Clarity Clear Urine pH 6.0 (<5.0-8.0) Urine Specific [place] 1.020 (1.000-1.030) Urine Protein Negative mg/dL (NEG-TRACE) Urine Glucose (UA) Negative mg/dL (NEG) Urine Ketones (Stick) Negative mg/dL (NEG) Urine Blood Negative (NEG) Urine Nitrite Negative (NEG) Urine Bilirubin Negative (NEG) Urine Urobilinogen Dipstick 1.0 mg/dL (0.2 mg/dL) Urine Leukocyte Esterase Trace (NEG) Urine RBC 0 /HPF (0-2) Urine WBC 1-4 /HPF (0-4) Urine Squamous Epithelial Cells Mod /LPF Urine Transitional Epithelial Cells Few /LPF Urine Bacteria 0 /HPF (0-FEW) Urine Mucus Marked /LPF Urine Opiates Screen Neg (NEG) Urine Methadone Screen Neg (NEG) Urine Barbiturates Neg (NEG) Urine Phencyclidine Screen Neg (NEG) Urine Amphetamine/Methamphetamine Neg (NEG) Urine Benzodiazepines Screen Neg (NEG) Urine Cocaine Screen Neg (NEG) Urine Cannabinoids Screen Neg (NEG) Urine Ethyl Alcohol Neg (NEG) White Blood Count 5.6 x10^3/uL (4.0-11.0) Red Blood Count 4.68 x10^6/uL (3.50-5.40) Hemoglobin 14.8 g/dL (12.0-15.5) Hematocrit 43.7 % (36.0-47.0) Mean Corpuscular Volume 93 fL (79-100) Mean Corpuscular Hemoglobin 32 pg (25-35) Mean Corpuscular Hemoglobin Concent 34 g/dL (31-37) Red Cell Distribution Width 13.8 % (11.5-14.5) Platelet Count 231 x10^3/uL (140-400) Neutrophils (%) (Auto) 55 % (31-73) Lymphocytes (%) (Auto) 34 % (24-48) Monocytes (%) (Auto) 9 % (0-9) Eosinophils (%) (Auto) 1 % (0-3) Basophils (%) (Auto) 1 % (0-3) Neutrophils # (Auto) 3.0 x10^3/uL (1.8-7.7) Lymphocytes # (Auto) 1.9 x10^3/uL (1.0-4.8) Monocytes # (Auto) 0.5 x10^3/uL (0.0-1.1) Eosinophils # (Auto) 0.1 x10^3/uL (0.0-0.7) Basophils # (Auto) 0.0 x10^3/uL (0.0-0.2) Prothrombin Time 13.1 SEC (11.7-14.0) Prothromb Time International Ratio 1.0 (0.8-1.1) Activated Partial Thromboplast Time 30 SEC (24-38) Sodium Level 143 mmol/L (136-145) Potassium Level 4.3 mmol/L (3.5-5.1) Chloride Level 107 mmol/L (98-107) Carbon Dioxide Level 26 mmol/L (21-32) Anion Gap 10 (6-14) Blood Urea Nitrogen 30 mg/dL (7-20) Creatinine 0.7 mg/dL (0.6-1.0) Estimated GFR (Cockcroft-Gault) 79.0 BUN/Creatinine Ratio 43 (6-20) Glucose Level 107 mg/dL (70-99) Calcium Level 9.2 mg/dL (8.5-10.1) Magnesium Level 2.2 mg/dL (1.8-2.4) Total Bilirubin 0.4 mg/dL (0.2-1.0) Aspartate Amino Transf (AST/SGOT) 24 U/L (15-37) Alanine Aminotransferase (ALT/SGPT) 23 U/L (14-59) Alkaline Phosphatase 68 U/L (46-116) Total Protein 6.6 g/dL (6.4-8.2) Albumin 3.7 g/dL (3.4-5.0) Albumin/Globulin Ratio 1.3 (1.0-1.7) Ethyl Alcohol Level < 10 mg/dL (0-10) Brief Hospital Course Ms Lawler is an 89 yo F w/ PMHx HTN and dementia who fell prior to her admission. The patient tells me that she lives by herself does not know if she has family around initially but later on when redirecting the conversation she tells me that she does have family in the vicinity. She denied any lightheadedness no chest pain no palpitations prior to the event, the patient denied any sensation of impending doom and she does not remember the chain of events that led her to be on the floor. Patient suffered a laceration on her right ear as a consequence of her fall in she was also found to have a subdural hematoma on CT scan. The patient reported no discomfort at the time my evaluation. We were asked to admit the patient for neurosurgical evaluation by Dr. Ramos. No neurological deficits are evident no slurred speech no strokelike symptoms were reported she is able to move all extremities and she is wanting to be released home soon if possible. Plan of care has been explained in detail and all of her concerns addressed to the best of my abilities. The patient family members reported that the patient takes aspirin 81 mg daily but no other anticoagulation. Patient denies headache no blurred vision no double vision no dysphagia odynophagia no shortness of breath no cough no sputum production no recent sick contacts were reported no nausea vomiting or diarrhea. No skin rashes no other complaints Consults: Neurosurgery Repeat CT head improved. Problem List: Mechanical fall Right ear laceration Subdural hematoma. History of essential hypertension History of dementia Greater than 30 minutes spent on d/c Discharge Information Condition at Discharge: Improved Follow Up: Weeks (1) Disposition/Orders: D/C to Home w/ HH Scheduled Amlodipine Besylate (Norvasc) 10 Mg Tablet, 10 MG PO DAILY for BP, (Reported) Entered as Reported by: Arlette Rivas on 06/07/20 0706 Last Action: Continued on 06/07/20 1003 by SVITLANA STEPHENS MD Discontinued Medications Aspirin (Children's Aspirin) 81 Mg Tab.chew, 81 MG PO DAILY for blood thinner, (Reported) Entered as Reported by: Arlette Rivas on 06/07/20 0631 Last Action: HELD on 06/07/20 1002 by SVITLANA STEPHENS MD Justicifation of Admission Dx: Justifications for Admission: Justification of Admission Dx: N/A MIKE DE SANTIAGO MD Jun 08, 2020 09:46
[2020-06-08 10:23] VITALS: BP 145/88
[2020-06-08] MEDS: amLODIPine BESYLATE 10 MG TABLET PO SCH (10:23)
--- NOTE | 2020-06-08 10:50 | NUR ---
SW following for discharge planning. Spoke with RN and reviewed chart. PT/OT recommendation is that pt have 24 hour care. Spoke with son Rasheed who stated pt's daughter will be staying with patient at her home on discharge. Pt to discharge home today, 06/08 with orders. Pt's son stated no preference in HH provider. CLYDE completed patient choice of vendor form. CLYDE phoned and faxed a referral to [facility]. Son to transport. No additional SW needs at this time. Addendum: 06/08/20 at 1701 by FABBY TANG SW spoke with [facility] and they can't accept pt's insurance. CLYDE spoke with [facility] and they can't staff this patient at this time. CLYDE phoned and faxed referral to [facility] and they can accept this pt once they know the PCP. CLYDE spoke with pt's son and PCP is Dr. Rosa Muñoz with [facility], . CLYDE notified Saumya with [facility].
--- NOTE | 2020-06-08 11:26 | NUR ---
Pt left unit stable, and got discharge packet/instructions
--- NOTE | 2020-06-10 12:33 | NUR ---
IP: Informed son and pt of negative COVID test. Both verbalized understanding.
== END 2020-06-08 11:22 | disposition still patient (30) ==
LOC: ER 18:18 → INTOOBSV 21:39 → 1 WEST ICU 21:39 → 6 SOUTH 06-07 10:00
PROVIDERS: ADMIT Internal Medicine; ATTEND Internal Medicine
DX: S01.311A Laceration without foreign body of right ear, initial encounter (principal); Z20.828 Contact with and (suspected) exposure to other viral communicable diseases; S06.5X0A Traumatic subdural hemorrhage without loss of consciousness, initial encounter; I10 Essential (primary) hypertension; F03.90 Unspecified dementia, unspecified severity, without behavioral disturbance, psychotic disturbance, mood disturbance, and anxiety; Z79.899 Other long term (current) drug therapy; Z79.82 Long term (current) use of aspirin; W19.XXXA Unspecified fall, initial encounter; Y93.89 Activity, other specified; Y92.89 Other specified places as the place of occurrence of the external cause; Y99.8 Other external cause status
CPT/HCPCS: 12013; 36415; 70450; 72125; 80053; 80307; 81001; 83735; 85025; 85610; 85730; 87086; 94760; 96374; 97161; 97166; 97530; 99284; G0378; G0480; J3490; U0003; 99285; G0379

== ENCOUNTER → 2020-06-17 | Outpatient (CLI) | payer MEDICARE ==
[2020-06-08 10:23] VITALS: BP 145/88
[~2020-06-17] MED LIST: AMLO10TA4 PO; ASPI81TA59 PO
--- NOTE | 2020-06-17 10:53 | KCIC ---
INDICATION: Reason: Follow up subdural hematoma. / Spl. Instructions: / History: . COMPARISON: June 07, 2020 TECHNIQUE: Axial CT images obtained through the head. One or more of the following individualized dose reduction techniques were utilized for this examination: 1. Automated exposure control; 2. Adjustment of the mA and/or kV according to patient size; 3. Use of iterative reconstruction technique. FINDINGS: No midline shift. Suprasellar cistern is not effaced. Diffuse prominence of ventricles and sulci which can be seen with age-related volume loss. Scattered foci of low density within the white matter. No definite acute intracranial hemorrhage. IMPRESSION: * No definite acute intracranial hemorrhage. * Scattered foci of low density of white matter. Nonspecific but can be seen with chronic small vessel ischemic disease. Electronically signed by: Jp Salomon MD (06/17/2020 10:50 AM) [id number]
== END ==
LOC: KCIC CT 09:32
PROVIDERS: ATTEND Neurological Surgery
DX: S06.5X0D Traumatic subdural hemorrhage without loss of consciousness, subsequent encounter (principal); X58.XXXD Exposure to other specified factors, subsequent encounter
CPT/HCPCS: 70450